=== PATIENT | male | born 2000 | race Caucasian/White ===

== ENCOUNTER 2022-07-05 17:44 | Emergency (ER) | payer OTHER, SELFPAY ==
--- NOTE | ~2022-07-05 | CT_ITS ---
EXAMINATION: CT abdomen pelvis wo con DATE: 07/05/2022 18:14 INDICATION: LUQ abdominal pain X 4 DAYS. VOMITING. CONSTIPATION. TECHNIQUE: Computed tomography (CT) of the abdomen and pelvis was performed without intravenous contr ast. Automated exposure control and iterative reconstruction technique were employed. The dose-length product was 213.09 mGy-cm. COMPARISON: None. FINDINGS: Exam limited by lack of contrast and paucity of abdominopelvic fat. Lower thorax: Unremarkable Liver: Normal. Biliary/Gallbladder: Gallbladder is normal. No bile duct dilation. Pancreas: No mass or duct dilation. Spleen: Normal. Adrenals:No mass. Kidneys: No mass, stone, or hydronephrosis. GI tract: Severe gastric wall edema and mucosal fold thickening involving portions of the body and an trum. No small or large bowel dilation. Nonvisualized. Mesentery/Peritoneum: No ascites, mass, or free air. Retroperitoneum: No mass. Pelvis: Pelvic organs are within normal limits. Soft Tissues: Soft tissues and body wall unremarkable. Bones: No acute osseous finding. IMPRESSION: Severe gastritis. No other acute abdominopelvic process detected. Reviewed, dictated and finalized at location K.
[2022-07-05 17:54] VITALS: BP 123/84; PULSE 60; RESP 16; TEMP 36.3; O2SAT 100
[2022-07-05] MEDS: ONDANSETRON INJ 4 MG/2 ML VIAL IV PUSH ×2 (18:33→20:12)
[2022-07-05] MEDS: SODIUM CHLORIDE 0.9% IV 500 ML 999 ML IV CONT (18:33)
[2022-07-05] MEDS: PANTOPRAZOLE SODIUM IV 40 MG VIAL IV PUSH ×2 (18:34→20:11)
[2022-07-05 19:10] LABS: Basophils Absolute Auto 0.05 K/mm3 (0.00-0.10); Basophils Percent Auto 0.5 % (0.0-1.0); Eosinophils Absolute Auto 0.09 K/mm3 (0.02-0.50); Eosinophils Percent Auto 0.8 % (1.0-6.0); Hematocrit 43.5 % (40.0-54.0); Hemoglobin 14.5 g/dL (14.0-18.0); Immature Granulocyte Absolute 0.05 K/mm3 (0.00-0.00); Immature Granulocyte Percent A 0.5 % (0.0-0.0); Lymphocytes Absolute Auto 1.49 K/mm3 (1.10-4.50); Lymphocytes Percent Auto 13.7 % (18.0-42.0); Mean Corpuscular HGB Conc 33.3 g/dL (32.0-36.0); Mean Corpuscular Hemoglobin 29.1 pg (27.0-31.0); Mean Corpuscular Volume 87.2 fL (78.0-102.0); Mean Platelet Volume 9.7 fl (8.7-11.0); Monocytes Absolute Auto 0.88 K/mm3 (0.10-0.90); Monocytes Percent Auto 8.1 % (2.0-11.0); Neutrophils Absolute Auto 8.3 K/mm3 (1.7-7.2); Neutrophils Percent Auto 76.4 % (50.0-70.0); Platelet Count Result 235 K/mm3 (150-420); Red Blood Count 4.99 M/mm3 (4.70-6.10); Red Cell Distribution Width 13.2 % (11.6-14.4); White Blood Count 10.9 K/mm3 (4.8-10.8)
[2022-07-05 19:24] LABS: Alanine Aminotransferase 15 U/L (16-63); Albumin Level 3.9 g/dL (3.4-5.0); Alkaline Phosphatase 80 U/L (46-116); Anion Gap 6 mmol/L (8-16); Aspartate Amino Transferase < 10 U/L (15-37); Bilirubin,Total 0.6 mg/dL (0.00-1.00); Blood Urea Nitrogen 11 mg/dL (7-18); Calcium 8.6 mg/dL (8.5-10.1); Carbon Dioxide 27 mmol/L (21-32); Chloride 101 mmol/L (98-108); Estimated CRCL calculation 103 ml/min; Estimated Glomerular Filt Rate > 60; Glucose 98 mg/dL (70-99); Lipase 33 U/L (73-393); Osmolality Calculated 277 mOsm/kg (285-295); Potassium 4.1 mmol/L (3.5-5.1); Sodium 134 mmol/L (136-145); Total Protein 6.7 g/dL (6.4-8.2)
[2022-07-05 19:26] LABS: Lactic Acid Reflex 0.8 mmol/L (0.4-2.0)
[2022-07-05 19:32] LABS: Add Urine Microscopic? YES; Appearance Urine Clear (Clear); Bilirubin Urine Negative (Negative); Blood Urine Negative (Negative); Color Urine Yellow (Yellow); Glucose Urine UA Negative (Negative); Ketones Urine Negative (Negative); Leukocyte Esterase Ur Negative LEU/UL (Negative); Nitrate Urine Negative (Negative); Protein Urine Trace (Negative); Urobilinogen Urine 0.2 mg/dL (0.2-1.0)
--- NOTE | 2022-07-05 19:57 | ED.ABDPAIN ---
HPI - Abdominal Pain General Chief Complaint: Abdominal Pain Stated Complaint: upper L pain under chest, hasn't used bathroom Time Seen by Provider: 07/05/22 18:02 Source: patient and RN notes reviewed Mode of arrival: ambulatory Limitations: no limitations History of Present Illness MD elicited complaint: abdominal pain Pertinent past history: constipation and gastritis Onset (ago): day(s) (2) Pain Consistency: constant Location: epigastric Severity: moderate Pain scale (0-10): 7 Quality: cramping, aching and burning Radiation: none Migration to: periumbilical Exacerbating factors: nothing Relieving factors: nothing Associated symptoms: nausea Related Data Allergies Allergy/AdvReac Type Severity Reaction Status Date / Time No Known Allergies Allergy Verified 07/05/22 17:57 Review of Systems Review of Systems: All systems reviewed & are unremarkable except as noted in HPI and below Constitutional: Constitutional: Reports no additional constitutional complaints Eyes: Eyes: Reports no additional eye complaints ENT: Reports system reviewed and no additional complaints, except as documented Cardiovascular: Cardiovascular: Reports no additional cardiovascular complaints Respiratory: Respiratory: Reports no additional respiratory complaints Gastrointestinal: Gastrointestinal: Reports abdominal pain and Reports heartburn Musculoskeletal: Musculoskeletal: Reports no additional musculoskeletal complaints Integumentary/Breasts: Skin/Breast: Reports system reviewed and no additional complaints, except as docu Neurologic: Reports system reviewed and no additional complaints, except as documented Psychiatric: Psychiatric: Reports no additional psychiatric complaints Endocrine: Endocrine: Reports no additional endocrine complaints Hematologic/Lymphatic: Hematologic/Lymphatic: Reports no additional hematologic/lymphatic complaints Allergic/Immunologic: Allergic/Immunologic: Reports no additional allergic/immunologic complaints PMFSH Past Medical History Medical History (Updated 07/09/22 @ 07:13 by Viridiana Bledsoe MD) Abdominal pain Gastritis Exam Const: General: no acute distress Nutritional Appearance: well nourished Orientation/consciousness: patient oriented x3 Limitations: no limitations HENMT: Head: normal to inspection Ears: external ears normal, TM's normal bilaterally and EAC's normal General nose exam: Normal external nose present and Normal nares present Face and sinus: normal facial exam and sinuses nontender Mouth: Yes Normal oral and palatal mucosa present and Yes moist mucous membranes Teeth and gingiva: dentition normal Throat: posterior oropharynx normal Eyes: Conjunctivae: conjunctivae normal Pupils: Equal, round and reactive pupils present EOM: EOMs intact bilaterally Neck: Neck: normal visual inspection, no lymphadenopathy and no meningeal signs Chest: Chest palpation & inspection: normal inspection of the chest Resp: Effort & Inspection: normal respiratory effort Auscultation: clear to auscultation bilaterally Cardio: Rate: regular rate Rhythm: regular rhythm GI: GI Palp: Yes Soft to palpation and Yes Tenderness to palpation present (GI) (minimal epigastric tenderness) Auscultation: normal bowel sounds : General: Yes bladder normal to palpation and Yes no CVA tenderness Back/Spine/Pelvis: Back: no CVA tenderness Skin: General skin exam: normal color Rashes: no rashes Wounds: no wounds Neuro: General: patient oriented x3, moves all extremities, no meningeal signs, no focal motor deficits and CN's II-XI intact bilaterally Cranial nerves: Yes Equal, round and reactive pupils present and Yes Nystagmus not present Speech: normal speech Gait exam (Neuro): Normal gait present Extrem: General: normal to inspection and no pedal edema Psych: Mental Status: mental status grossly normal Affect: normal affect Attitude: cooperative Course Course Emergency Course: P
[2022-07-05 19:59] LABS: Mucus Urine Few /lpf
[2022-07-05] MEDS: MAG HYDROX/ALUMINUM HYD/SIMETH 30 ML, PHENobarb/HYOSCY/ATROPINE/SCOP 32.4 MG, LIDOCAINE... PO (20:10)
[2022-07-05 20:32] VITALS: BP 121/53; PULSE 54; RESP 16; O2SAT 100
== END 2022-07-05 20:34 | disposition home or self-care (01) ==
PROVIDERS: Emergency Provider Emergency Medicine; PCP Physician Assistant
DX: K29.70 Gastritis, unspecified, without bleeding (principal)
CPT/HCPCS: 36415; 74176; 80053; 81001; 83605; 83690; 85025; 96361; 96374; 96375; 96376; 99284; A9270; C9113; J2405; J7040

== ENCOUNTER 2023-04-04 11:21 | Emergency (ER) | payer OTHER, SELFPAY ==
[2023-04-04 11:21] VITALS: BP 128/72; PULSE 72; RESP 16; TEMP 36.7; O2SAT 99
--- NOTE | 2023-04-04 11:29 | ED.NECK ---
HPI - Neck Pain/Injury General Chief Complaint: Neck Pain/Injury Stated Complaint: neck pain Time Seen by Provider: 04/04/23 11:29 History of Present Illness HPI Narrative: 22-year-old male patient is here with complaints of left-sided neck pain that has been going on for last 2 days. He does not recall any injury. He states that the pain is mostly on the side and the back and gets aggravated when he turns his neck to the left side. He has no pain when he moves the neck to the right side. He does not experience any stiffness in the neck. 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 He generally in good health. Related Data Home Medications Medication Instructions Recorded Confirmed No Home Medications 04/04/23 04/04/23 Allergies Allergy/AdvReac Type Severity Reaction Status Date / Time No Known Allergies Allergy Verified 04/04/23 11:27 Review of Systems Review of Systems: All systems reviewed & are unremarkable except as noted in HPI and below PMFSH Past Medical History Medical History Abdominal pain Gastritis Exam Narrative: Alert male patient who appears in no acute distress. vital signs are stable. HEENT is normal neck is supple. There is no midline tenderness. There is tenderness palpated in the left sternocleidomastoid in its entirety. The patient does have some restricted rotational movement to the left side and the right side is normal. Carotid pulses are bilaterally palpable. No respiratory distress. Neurologic examination is grossly normal. Course Course Emergency Course: Patient was offered to short of ketorolac he however prefers to take oral medication and will therefore discharge her with instructions take Tylenol and ibuprofen together and also give him a prescription for muscle relaxant methocarbamol. Vital Signs Vital signs: Vital Signs Temperature 36.7 C 04/04/23 11:21 Pulse Rate 72 04/04/23 11:21 Respiratory Rate 16 04/04/23 11:21 Blood Pressure 128/72 04/04/23 11:21 Pulse Oximetry 99 04/04/23 11:21 Oxygen Delivery Room Air 04/04/23 11:21 Temperature 36.7 C 04/04/23 11:21 Pulse Rate 72 04/04/23 11:21 Respiratory Rate 16 04/04/23 11:21 Blood Pressure 128/72 04/04/23 11:21 Pulse Oximetry 99 04/04/23 11:21 Oxygen Delivery Room Air 04/04/23 11:21 Discharge Plan Discharge Prescriptions: No Action No Home Medications Follow-up/Referrals: Herrera,SAMANTHA Edouard [Primary Care Provider] -
== END 2023-04-04 11:43 | disposition home or self-care (01) ==
LOC: CHSED 11:41
PROVIDERS: Emergency Provider Emergency Medicine; PCP Physician Assistant
DX: S16.1XXA Strain of muscle, fascia and tendon at neck level, initial encounter (principal); X58.XXXA Exposure to other specified factors, initial encounter
CPT/HCPCS: 99281

== ENCOUNTER 2024-03-03 08:34 | Emergency (ER) | payer SELFPAY ==
--- NOTE | ~2024-03-03 | XR_ITS ---
XR hand LT min 3V, XR wrist LT w scaphoid 03/03/2024 08:56 Indication: Left hand and wrist pain after fall Procedure: 3 views left hand and 4 views left wrist Comparison: No prior studies for comparison. Findings: No fracture, subluxation there is anatomic alignment. No focal soft tissue abnormality. No foreign bodies. Impression: 1: No acute fracture. Reviewed, dictated and finalized at location B. Impression: 1: No acute fracture. Impression: 1: No acute fracture.
[2024-03-03 08:35] VITALS: BP 126/81; PULSE 70; RESP 17; TEMP 36.2; O2SAT 100
[2024-03-03 08:36] VITALS: BP 126/81; PULSE 67; TEMP 36.2; O2SAT 100
--- NOTE | 2024-03-03 08:48 | ED.GENADULT ---
HPI - General Adult General Chief complaint: Extremity Injury, Upper Stated complaint: hand/wrist pain Time Seen by Provider: 03/03/24 08:37 History of Present Illness HPI narrative: Jorden is a previously healthy 23M that presented to the ED with pain and swelling in his left wrist/hand after a fall 2 days ago. No other injuries. Related Data Home Medications Medication Instructions Recorded Confirmed No Home Medications 03/03/24 03/03/24 Allergies Allergy/AdvReac Type Severity Reaction Status Date / Time No Known Allergies Allergy Verified 03/03/24 08:35 Review of Systems Review of Systems: All systems reviewed & are unremarkable except as noted in HPI and below PMFSH Past Medical History Medical History Abdominal pain Gastritis Exam Const: General: cooperative, healthy appearing, comfortable, no acute distress, well developed, alert, awake and Physically active Orientation/consciousness: oriented to person, oriented to place and oriented to time HENMT: Head: normal to inspection, normocephalic and atraumatic Ears: hearing grossly normal bilaterally and external ears normal Face/Nose/Sinus: Normal external nose present Eyes: General: appearance normal, both eyes and all related structures Periorbital: periorbital findings normal Sclera: sclerae normal Pupils: Equal, round and reactive pupils present Neck: Neck: normal visual inspection Chest: Chest palpation & inspection: normal inspection of the chest Resp: Effort & Inspection: normal respiratory effort, able to speak in complete sentences and no respiratory distress Cardio: Jugular venous distension: no JVD Skin: General skin exam: normal color and no rashes or lesions noted Neuro: General: oriented to person, oriented to place and oriented to time Cranial nerves: Yes Equal, round and reactive pupils present Extrem: General: normal to inspection Other: left wrist and dorsal side of hand was swollen and TTP Course Course Emergency Course: XR hand LT min 3V, XR wrist LT w scaphoid 03/03/2024 08:56 Indication: Left hand and wrist pain after fall Procedure: 3 views left hand and 4 views left wrist Comparison: No prior studies for comparison. Findings: No fracture, subluxation there is anatomic alignment. No focal soft tissue abnormality. No foreign bodies. Impression: 1: No acute fracture. given normal radiographs it is likely just a sprain or soft tissue injury. Vital Signs Vital signs: Vital Signs Temperature 97.1 F L 03/03/24 08:35 Pulse Rate 70 03/03/24 08:35 Respiratory Rate 17 03/03/24 08:35 Blood Pressure 126/81 03/03/24 08:35 Pulse Oximetry 100 03/03/24 08:35 Oxygen Delivery Room Air 03/03/24 08:35 Temperature 97.1 F L 03/03/24 08:36 Pulse Rate 67 03/03/24 08:36 Respiratory Rate 17 03/03/24 08:35 Blood Pressure 126/81 03/03/24 08:36 Pulse Oximetry 100 03/03/24 08:36 Oxygen Delivery Room Air 03/03/24 08:36 Medical Decision Making Vital Signs Vital Signs: Vital Signs Temperature 97.1 F L 03/03/24 08:35 Pulse Rate 70 03/03/24 08:35 Respiratory Rate 17 03/03/24 08:35 Blood Pressure 126/81 03/03/24 08:35 Pulse Oximetry 100 03/03/24 08:35 Oxygen Delivery Room Air 03/03/24 08:35 Temperature 97.1 F L 03/03/24 08:36 Pulse Rate 67 03/03/24 08:36 Respiratory Rate 17 03/03/24 08:35 Blood Pressure 126/81 03/03/24 08:36 Pulse Oximetry 100 03/03/24 08:36 Oxygen Delivery Room Air 03/03/24 08:36 Discharge Plan Discharge Clinical Impression: Left wrist sprain Patient Disposition: Home, Self-Care Condition: Stable Instructions: Wrist Sprain (ED) Prescriptions: No Action No Home Medications Follow-up/Referrals: Cristian,MD Hussein [Primary Care Provider] - Stand Alone Forms: Work/School Release IP
[2024-03-03 09:14] VITALS: BP 126/81; PULSE 70; RESP 17; TEMP 36.2; O2SAT 100
== END 2024-03-03 09:14 | disposition home or self-care (01) ==
LOC: CHSED 09:27
PROVIDERS: Emergency Provider Family Medicine; PCP Family Medicine
DX: S63.502A Unspecified sprain of left wrist, initial encounter (principal); W19.XXXA Unspecified fall, initial encounter
CPT/HCPCS: 73110; 73130; 99283